=== PATIENT | male | born 1955 | race Caucasian/White ===

== ENCOUNTER → 2023-03-21 15:43 | Outpatient (REF) | payer OTHER, SELFPAY ==
--- NOTE | 2023-03-21 15:57 | CA_ITS ---
Transthoracic Echocardiogram Patient (Last, First, Middle): Abhishek Olivera, Gender: Male Date of : 1955 Age: 67 Procedure Date: 03/21/2023 Procedure Type: Transthoracic Echocardiogram Location: OP Height: 180.34 cm Weight: 109.32 kg BSA: 2.28 m2 Heart Rate: bpm BP: 117 / 69 mmHg [employer]: [employer]AN Referring MD: Shanti Bloom Symptoms: PUL HTN I27.20 PUL EMBOLISM I26.99 Study Quality: Adequate with contrast ECG Rhythm: Sinus Conclusions: - The left ventricular systolic function is normal. The calculated ejection fraction is 67% by biplane method. - Possible basal inferior akinesis but not well seen. - There is mildly increased left ventricular wall thickness. - There is moderate calcification of the aortic valve. - No obvious valvular pathology seen on this study. Findings Left Ventricle Normal left ventricular cavity size. There is mildly increased left ventricular wall thickness. The left ventricular systolic function is normal. The calculated ejection fraction is 67% by biplane method. Evidence suggests grade I (mild) diastolic dysfunction. There is severe septal asymmetric hypertrophy. Possible basal inferior akinesis but not well seen. Wall Motion Rest Echo Findings The basal inferior segment is akinetic. Right Ventricle Mildly increased right ventricular cavity size. There is mildly decreased right ventricular systolic function. Atria Both atria are normal in size. Aortic Valve There is moderate calcification of the aortic valve. There is no aortic valve stenosis. There is no aortic valve regurgitation. Mitral Valve There is mild anterior mitral leaflet thickening. There is no mitral valve regurgitation. There is no mitral valve stenosis. Pulmonic Valve The pulmonic valve is likely normal. Tricuspid Valve There is no tricuspid valve regurgitation. Tricuspid regurgitation envelope is inadequate for calculation of right ventricular systolic pressure. Great Vessels The asc aorta is normal in size. Venous The inferior vena cava is normal in size and collapses greater than 50% with inspiration. Pericardium/Pleural There is no evidence of pericardial effusion. Prior Study Comparison No prior study available for comparison. Recommendations, Care & Conclusions No obvious valvular pathology seen on this study. Measurements 2D Linear Measurements IVSd: 1.64 0.6-0.9/0.6-1.0 cm LVIDd: 4.37 3.9-5.3/4.2-5.9 cm LVIDd Index: 1.92 2.4-3.2/2.2-3.1 cm/m2 LVIDs: 3.38 2.0-3.6 cm LVPWd: 1.24 0.7-1.1 cm LA Diam: 3.90 2.7-3.8/3.0-4.0 cm LAIDs Index: 1.71 1.5-2.3 cm/m2 LV Mass: 309.53 67-162/88-224 g LV Mass Index: 135.76 43-95/49-115 g/m2 LVOT Diam: 2.00 3.0+(-)1.3 cm 2D Systolic Function EF 4C: 63.70 >55% EF 2C: 66.30 >55% EF BiP: 66.80 >55% Mitral Valve MV Pk E: 0.78 MV PK A: 0.84 MV Decel Time: 192.00 E/A: 0.90 E'Lateral: 5.77 E'Medial: 4.68 E/E' Med: 16.70 E/E' Lat: 13.50 PHT: 56.00 MVA PHT: 3.93 Decel [place]: 4.06 Aortic Valve AoV Pk Glenn: 1.43 AoV Mn Glenn: 0.96 AoV VTI: 0.23 AoV Pk Grad: 8.00 Aov Mn Grad: 4.00 DENA Cont.VTI: 2.23 LVOT LVOT Pk Glenn: 0.85 LVOT Mn Glenn: 0.61 LVOT VTI: 0.16 LVOT Pk Grad: 3.00 LVOT Mn Grad: 2.00 LVOT Diam: 2.00 LVOT Area: 3.14 Diastolic Function MV Pk E: 0.78 MV Pk A: 0.84 E/A: 0.90 E'Medial: 4.68 E/E' Med: 16.70 E' Laterial: 5.77 E/E' Lat: 13.50 Right Ventricle TAPSE (mm): 18.00 TVS' Glenn: 8.38 Tricuspid Valve RA Press: 3.00 Great Vessels Aorta Sinus of Valsalva: 3.49 2.0-3.[address] [place]: 2.25 1.7-3.4 cm Ao Asc: 3.60 2.1-3.4 cm Updated in Other Vendor System with Status of Final Jacek Mejia MD electronically signed on 03/22/2023 10:18:46 AM with status of Final
== END ==
LOC: HO.CARD 15:43
PROVIDERS: Visit Provider Internal Medicine
DX: I27.20 Pulmonary hypertension, unspecified (principal); I26.99 Other pulmonary embolism without acute cor pulmonale
CPT/HCPCS: 93306; Q9957

== ENCOUNTER → 2023-03-21 15:57 | Outpatient (BNV) | payer OTHER, SELFPAY | PROVIDERS: Visit Provider Internal Medicine | DX: I35.8 Other nonrheumatic aortic valve disorders (principal); I34.89 Other nonrheumatic mitral valve disorders | CPT/HCPCS: 93306 ==